=== PATIENT | male | born 1970 | race Hispanic/Latino ===

== ENCOUNTER 2019-02-26 19:59 | Emergency (ER) | payer SELFPAY ==
--- NOTE | 2019-02-26 21:04 | ER ---
Nurse's Notes [facility] Name: Vinny Patino Age: 49 yrs Sex: Male : 1970 Arrival Date: 02/26/2019 Time: 20:05 Bed 16 Private MD: AMINAH GILL Diagnosis: ED Course: 02/26 20:05 Patient arrived in ED. am2 20:05 AMINAH GILL is Private Physician. am2 20:56 Carmella Claudio, RENE is Primary Nurse. ca1 Administered Medications: No medications were administered Outcome: 21:02 Eloped from patient exam room, before seeing physician Time discovered patient gone: ca1 February 26, 2019 at 21:03 21:04 Patient left the ED. ca1 Signatures: Diamond Camejo am2 Carmella Claudio, RN RN ca1
== END 2019-02-26 21:04 | disposition left against medical advice (07) ==
LOC: ER 19:59
DX: Z53.21 Procedure and treatment not carried out due to patient leaving prior to being seen by health care provider (principal)